=== PATIENT | male | born 1970 | race Caucasian/White ===

== ENCOUNTER 2016-07-15 20:31 | Emergency (ER) | payer OTHER ==
[~2016-07-15] VITALS: Ht 175.3 cm; Wt 65.3 kg
[~2016-07-15 20:31] MED LIST: DAYTIME COLD-F1 EAC2 PO; EFFEXOR; EFFEXOR75 MG PO; FLUPHENAZINE HCL5 MG PO; GABAPENTIN; HYCODAN SYRUP480 ML PO; MELOXICAM15 MG PO; NEURONTIN600 MG PO; NIGHT TIME COL180 ML PO; PREDNISONE20 MG PO; PROAIR HFA8.5 GM IH; PROLIXIN10 MG PO; TESSALON PERLE100 MG PO; TRAZODONE HCL50 MG PO; VENTOLIN HFA18 GM IH; ZOFRAN ODT4 MG PO
[2016-07-15 21:17] LABS: HEMATOCRIT 37.4 % (38.0-50.0); MCH 29.9 PG (29.0-34.0); MCHC 33.2 G/DL (30.0-36.0); MCV 90.1 FL (86-99); MEAN PLAT.VOLUME 8.8 uM^3 (9.0-12.4); PLATELET COUNT 238 K/uL (156-360); RBC DIS.WIDTH-CV 13.3 % (11.8-14.6); RED BLOOD COUNT 4.15 M/uL (4.00-5.50); WHITE BLOOD COUNT 13.6 K/uL (4.1-10.2)
[2016-07-15 21:29] LABS: CHLORIDE 110 mEq/L (99-109); POTASSIUM 4.9 mEq/L (3.7-5.4); SODIUM 142 mEq/L (136-147)
[2016-07-15 21:31] LABS: GLUCOSE 111 mg/dL (70-99)
[2016-07-15 21:32] LABS: ANION GAP 7 MEQ/L (2-14)
[2016-07-15 21:33] LABS: TOTAL BILIRUBIN 0.4 mg/dL (0.0-1.0)
[2016-07-15 21:35] LABS: ALKALINE PHOSPHATASE 78 IU/L (3-129); GFR ESTIMATE (CALCULATED) > 59 mL/min/
[2016-07-15 21:36] LABS: UREA NITROGEN (BUN) 16 mg/dL (9-23)
[2016-07-15 23:05] LABS: BILIRUBIN NEGATIVE; BLOOD NEGATIVE; COLOR YELLOW ((YELLOW)); GLUCOSE (STRIP) NEGATIVE; KETONES 5; LEUKOCYTES NEGATIVE; NITRITE NEGATIVE; PROTEIN (STRIP) 30; SPECIFIC GRAVITY 1.021 (1.000-1.030); UROBILINOGEN 0.2 MG/DL (0.2-1.0)
[2016-07-15 23:07] LABS: ADD MIUA? NO; UCUL ADDED? NO
[2016-07-15 23:19] LABS: PHENCYCLIDINE NEGATIVE (25 ng/mL); THC CANNABINOIDS NEGATIVE (50 ng/mL)
[2016-07-15 23:20] LABS: AMPHETAMINE PRESUMPTIVE POSITIVE (500 ng/mL); BARBITURATES NEGATIVE (200 ng/mL); BENZODIAZEPINES NEGATIVE (150 ng/mL); COCAINE PRESUMPTIVE POSITIVE (150 ng/mL); INTERNAL CONTROLS VALID? YES; METHADONE NEGATIVE (200 ng/mL); METHAMPHETAMINE PRESUMPTIVE POSITIVE (500 ng/mL); OPIATES (MORPHINE) PRESUMPTIVE POSITIVE (100 ng/mL); OXYCODONE NEGATIVE (100 ng/mL); PROPOXYPHENE NEGATIVE (300 ng/mL); TRICYCLIC ANTIDEPRESSANTS PRESUMPTIVE POSITIVE (300 ng/mL)
[2016-07-15 23:21] LABS: ADD MEDTOX COMMENT Y
[2016-07-16] MEDS ORDERED: ZOFRAN ODT4 MG PO (00:03)
[2016-07-16 00:08] VITALS: BP 114/75
== END 2016-07-16 00:08 | disposition home or self-care (01) ==
LOC: EME 20:31
PROVIDERS: Nurse Practitioner Family
DX: R51 Headache (principal); F19.10 Other psychoactive substance abuse, uncomplicated; F17.200 Nicotine dependence, unspecified, uncomplicated
CPT/HCPCS: 80053; 81003; 84999; 85027; 93005; 99281; 99284

== ENCOUNTER 2016-10-28 17:05 | Emergency (ER) | payer OTHER ==
[~2016-10-28] VITALS: Ht 172.7 cm; Wt 60.8 kg
[2016-10-28 17:51] LABS: BASOPHIL COUNT 0.1 K/uL (0-0.1); EOSINOPHIL (%) 7.9 % (0-5); EOSINOPHIL COUNT 0.9 K/uL (0-0.3); HEMATOCRIT 49.1 % (38.0-50.0); IMMATURE GRANULOCYTE (%) 0.3 % (0.0-0.7); INSTRUMENT ABS NEUTROPHIL CT 7.9 K/uL; LYMPHOCYTE COUNT 1.8 K/uL (1.0-2.8); MCH 30.9 PG (29.0-34.0); MCHC 33.6 G/DL (30.0-36.0); MCV 91.9 FL (86-99); MEAN PLAT.VOLUME 9.3 uM^3 (9.0-12.4); MONOCYTE (%) 6.8 % (3-12); MONOCYTE COUNT 0.8 K/uL (0-0.8); NEUTROPHIL (%) 68.8 % (45-76); NEUTROPHIL COUNT 7.9 K/uL (1.8-6.4); PLATELET COUNT 287 K/uL (156-360); RBC DIS.WIDTH-CV 13.2 % (11.8-14.6); RBC DIS.WIDTH-SD 44.8 % (39-53); RED BLOOD COUNT 5.34 M/uL (4.00-5.50); WHITE BLOOD COUNT 11.4 K/uL (4.1-10.2)
[2016-10-28 18:12] LABS: CHLORIDE 101 mEq/L (99-109); POTASSIUM 4.7 mEq/L (3.7-5.4); SODIUM 135 mEq/L (136-147)
[2016-10-28 18:14] LABS: GLUCOSE 90 mg/dL (70-99)
[2016-10-28 18:15] LABS: ANION GAP 12 MEQ/L (2-14)
[2016-10-28 18:16] LABS: TOTAL BILIRUBIN 0.9 mg/dL (0.0-1.0)
[2016-10-28 18:17] LABS: SERUM ETHYL ALCOHOL 10 mg/dL
[2016-10-28 18:18] LABS: ALKALINE PHOSPHATASE 90 IU/L (3-129); GFR ESTIMATE (CALCULATED) 46 mL/min/
[2016-10-28 18:19] LABS: UREA NITROGEN (BUN) 23 mg/dL (9-23)
[2016-10-28 18:21] LABS: LIPASE 9 U/L (1.0-51.0); TROP-I INTERPRETATION NEGATIVE; TROPONIN-I < 0.01 ng/mL (0.0-0.30)
[2016-10-28 19:30] LABS: CREATINE KINASE 130 IU/L (1-294)
[2016-10-28 20:22] LABS: ADD MIUA? YES; BILIRUBIN NEGATIVE; BLOOD NEGATIVE; COLOR AMBER ((YELLOW)); GLUCOSE (STRIP) NEGATIVE; KETONES 5; LEUKOCYTES NEGATIVE; NITRITE NEGATIVE; PROTEIN (STRIP) 100; SPECIFIC GRAVITY 1.019 (1.000-1.030); UROBILINOGEN 0.2 MG/DL (0.2-1.0)
[2016-10-28 20:35] LABS: ADD MEDTOX COMMENT Y; AMPHETAMINE PRESUMPTIVE POSITIVE (500 ng/mL); BARBITURATES NEGATIVE (200 ng/mL); BENZODIAZEPINES NEGATIVE (150 ng/mL); COCAINE PRESUMPTIVE POSITIVE (150 ng/mL); INTERNAL CONTROLS VALID? YES; METHADONE NEGATIVE (200 ng/mL); METHAMPHETAMINE PRESUMPTIVE POSITIVE (500 ng/mL); OPIATES (MORPHINE) PRESUMPTIVE POSITIVE (100 ng/mL); OXYCODONE NEGATIVE (100 ng/mL); PHENCYCLIDINE NEGATIVE (25 ng/mL); PROPOXYPHENE NEGATIVE (300 ng/mL); THC CANNABINOIDS PRESUMPTIVE POSITIVE (50 ng/mL); TRICYCLIC ANTIDEPRESSANTS NEGATIVE (300 ng/mL)
[2016-10-28 20:39] LABS: GFR ESTIMATE (CALCULATED) > 59 mL/min/
[2016-10-28 20:43] LABS: TROP-I INTERPRETATION NEGATIVE; TROPONIN-I < 0.01 ng/mL (0.0-0.30)
[2016-10-28] MEDS ORDERED: NARCAN4 MG NS (21:03)
[2016-10-28 21:05] LABS: EPITHELIAL CELLS RARE /HPF; WHITE BLOOD CELLS 0-5 /HPF (0-5)
[2016-10-28 21:07] LABS: BACTERIA RARE /HPF; CASTS PRESENT /LPF; CRYSTALS NONE SEEN; HYALINE CASTS 30-40 /LPF; MUCUS 2+ /LPF; RED BLOOD CELLS RARE /HPF (0-5); UCUL ADDED? NO
[2016-10-28 21:22] VITALS: BP 127/63
== END 2016-10-28 21:23 | disposition home or self-care (01) ==
LOC: EME → EDBD 17:05 → EME 21:23
PROVIDERS: Emergency Medicine
DX: F19.10 Other psychoactive substance abuse, uncomplicated (principal); E86.0 Dehydration; R56.9 Unspecified convulsions; F31.9 Bipolar disorder, unspecified; F17.200 Nicotine dependence, unspecified, uncomplicated
CPT/HCPCS: 71020; 73140; 80053; 81003; 82550; 82565; 83690; 84484; 84999; 85025; 93005; 99281; 99285; G0480; J2310; J7030